=== PATIENT | male | born 1955 | race Caucasian/White ===

== ENCOUNTER 2022-11-18 06:06 | Outpatient (REF) | payer MEDICARE, MEDICAID, SELFPAY ==
[2022-11-18 05:55] LABS: MANUAL DIFF FLAG NO
[2022-11-18 06:12] LABS: Basophils Percent Auto 0.4 % (0-2); Eosinophils Absolute Auto 0.4 X10*3/uL (0.0-0.4); Eosinophils Percent Auto 4.5 % (0-4); Hematocrit 31.4 % (42.0-52.0); Hemoglobin 10.4 g/dl (14.0-18.0); Imm Gran Abs Auto 0.04 X10*3/uL (0.00-0.03); Imm Gran Pct Auto 0.4 % (0.0-0.4); Lymphocytes Absolute Auto 2.1 X10*3/uL (1.2-4.9); Lymphocytes Percent Auto 23.9 % (20-40); Mean Corpuscular HGB Conc 33.1 g/dl (31.0-36.0); Mean Corpuscular Hemoglobin 30.1 pg (27.0-33.0); Mean Corpuscular Volume 90.8 fL (80.0-98.0); Mean Platelet Volume 10.3 fL (9.4-12.4); Monocytes Absolute Auto 0.7 X10*3/uL (0.1-1.2); Monocytes Percent Auto 7.5 % (2-11); Neutrophils Absolute Auto 5.7 x10*3/uL (2.0-8.3); Neutrophils Percent Auto 63.3 % (45-73); Platelet Count 292 X10*3/uL (160-400); Red Blood Count 3.46 X10*6/uL (4.60-5.80); Red Cell Distribution Width 15.2 % (11.0-16.0); White Blood Count 8.9 X10*3/uL (4.8-10.8)
[2022-11-18 06:30] LABS: Anion Gap 16 (12-20); Blood Urea Nitrogen 11 mg/dL (9-16); Carbon Dioxide 27 mmol/L (22-29); Chloride 100 mmol/L (96-108); Estimated Glomerular Filt Rate > 60; Glucose Random 111 mg/dL (60-115); Potassium 5.1 mmol/L (3.3-5.1); Sodium 138 mmol/L (135-145)
== END 2022-11-18 06:07 | disposition home or self-care (01) ==
LOC: HO.MMNH1L 06:06
PROVIDERS: Visit Provider Family Medicine
DX: E11.9 Type 2 diabetes mellitus without complications (principal); E46 Unspecified protein-calorie malnutrition; I10 Essential (primary) hypertension
CPT/HCPCS: 36415; 80048; 85025

== ENCOUNTER 2022-11-25 06:08 | Outpatient (REF) | payer MEDICARE, MEDICAID, SELFPAY ==
[2022-11-25 05:59] LABS: MANUAL DIFF FLAG NO
[2022-11-25 06:53] LABS: Basophils Percent Auto 0.6 % (0-2); Eosinophils Absolute Auto 0.2 X10*3/uL (0.0-0.4); Eosinophils Percent Auto 2.9 % (0-4); Hemoglobin 9.3 g/dl (14.0-18.0); Imm Gran Abs Auto 0.02 X10*3/uL (0.00-0.03); Imm Gran Pct Auto 0.3 % (0.0-0.4); Lymphocytes Absolute Auto 1.9 X10*3/uL (1.2-4.9); Lymphocytes Percent Auto 28.8 % (20-40); Mean Corpuscular HGB Conc 32.1 g/dl (31.0-36.0); Mean Corpuscular Hemoglobin 29.5 pg (27.0-33.0); Mean Corpuscular Volume 92.1 fL (80.0-98.0); Mean Platelet Volume 10.4 fL (9.4-12.4); Monocytes Absolute Auto 0.6 X10*3/uL (0.1-1.2); Monocytes Percent Auto 9.1 % (2-11); Neutrophils Absolute Auto 3.9 x10*3/uL (2.0-8.3); Neutrophils Percent Auto 58.3 % (45-73); Platelet Count 295 X10*3/uL (160-400); Red Blood Count 3.15 X10*6/uL (4.60-5.80); Red Cell Distribution Width 15.6 % (11.0-16.0); White Blood Count 6.6 X10*3/uL (4.8-10.8)
[2022-11-25 07:27] LABS: Anion Gap 14 (12-20); Blood Urea Nitrogen 15 mg/dL (9-16); Calcium 9.5 mg/dL (8.4-10.2); Carbon Dioxide 28 mmol/L (22-29); Chloride 99 mmol/L (96-108); Estimated Glomerular Filt Rate > 60; Glucose Random 100 mg/dL (60-115); Potassium 4.9 mmol/L (3.3-5.1); Sodium 136 mmol/L (135-145)
== END 2022-11-25 06:09 | disposition home or self-care (01) ==
LOC: HO.MMNH1L 06:08
PROVIDERS: Visit Provider Family Medicine
DX: E11.9 Type 2 diabetes mellitus without complications (principal); E46 Unspecified protein-calorie malnutrition; I10 Essential (primary) hypertension
CPT/HCPCS: 36415; 80048; 85025

== ENCOUNTER 2022-12-02 05:51 | Outpatient (REF) | payer MEDICARE, MEDICAID, SELFPAY ==
[2022-12-02 05:43] LABS: MANUAL DIFF FLAG NO
[2022-12-02 06:18] LABS: Basophils Percent Auto 0.5 % (0-2); Eosinophils Absolute Auto 0.2 X10*3/uL (0.0-0.4); Eosinophils Percent Auto 2.7 % (0-4); Hematocrit 27.7 % (42.0-52.0); Imm Gran Abs Auto 0.05 X10*3/uL (0.00-0.03); Imm Gran Pct Auto 0.9 % (0.0-0.4); Lymphocytes Absolute Auto 1.9 X10*3/uL (1.2-4.9); Lymphocytes Percent Auto 32.6 % (20-40); Mean Corpuscular HGB Conc 32.5 g/dl (31.0-36.0); Mean Corpuscular Volume 92.3 fL (80.0-98.0); Mean Platelet Volume 10.4 fL (9.4-12.4); Monocytes Absolute Auto 0.6 X10*3/uL (0.1-1.2); Monocytes Percent Auto 10.9 % (2-11); Neutrophils Absolute Auto 3.1 x10*3/uL (2.0-8.3); Neutrophils Percent Auto 52.4 % (45-73); Platelet Count 271 X10*3/uL (160-400); Red Cell Distribution Width 16.1 % (11.0-16.0); White Blood Count 5.9 X10*3/uL (4.8-10.8)
[2022-12-02 06:35] LABS: Anion Gap 12 (12-20); Blood Urea Nitrogen 10 mg/dL (9-16); Calcium 9.6 mg/dL (8.4-10.2); Carbon Dioxide 30 mmol/L (22-29); Chloride 101 mmol/L (96-108); Estimated Glomerular Filt Rate > 60; Glucose Random 109 mg/dL (60-115); Potassium 5.3 mmol/L (3.3-5.1); Sodium 138 mmol/L (135-145)
== END 2022-12-02 05:52 | disposition home or self-care (01) ==
LOC: HO.MMNH1L 05:51
PROVIDERS: Visit Provider Family Medicine
DX: E11.9 Type 2 diabetes mellitus without complications (principal); E46 Unspecified protein-calorie malnutrition; I10 Essential (primary) hypertension
CPT/HCPCS: 36415; 80048; 85025

== ENCOUNTER 2022-12-09 06:05 | Outpatient (REF) | payer MEDICARE, MEDICAID, SELFPAY ==
[2022-12-09 06:02] LABS: MANUAL DIFF FLAG NO
[2022-12-09 07:01] LABS: Anion Gap 13 (12-20); Blood Urea Nitrogen 15 mg/dL (9-16); Calcium 9.8 mg/dL (8.4-10.2); Carbon Dioxide 28 mmol/L (22-29); Chloride 101 mmol/L (96-108); Estimated Glomerular Filt Rate > 60; Glucose Random 104 mg/dL (60-115); Sodium 137 mmol/L (135-145)
[2022-12-09 07:05] LABS: Basophils Percent Auto 0.3 % (0-2); Eosinophils Absolute Auto 0.2 X10*3/uL (0.0-0.4); Eosinophils Percent Auto 1.3 % (0-4); Hematocrit 27.8 % (42.0-52.0); Imm Gran Abs Auto 0.07 X10*3/uL (0.00-0.03); Imm Gran Pct Auto 0.5 % (0.0-0.4); Lymphocytes Absolute Auto 1.6 X10*3/uL (1.2-4.9); Lymphocytes Percent Auto 12.5 % (20-40); Mean Corpuscular HGB Conc 32.4 g/dl (31.0-36.0); Mean Corpuscular Hemoglobin 29.6 pg (27.0-33.0); Mean Corpuscular Volume 91.4 fL (80.0-98.0); Mean Platelet Volume 10.6 fL (9.4-12.4); Monocytes Absolute Auto 1.2 X10*3/uL (0.1-1.2); Monocytes Percent Auto 9.5 % (2-11); Neutrophils Absolute Auto 9.8 x10*3/uL (2.0-8.3); Neutrophils Percent Auto 75.9 % (45-73); Platelet Count 250 X10*3/uL (160-400); Red Blood Count 3.04 X10*6/uL (4.60-5.80); Red Cell Distribution Width 16.7 % (11.0-16.0); White Blood Count 12.9 X10*3/uL (4.8-10.8)
== END 2022-12-09 06:06 | disposition home or self-care (01) ==
LOC: HO.MMNH1L 06:05
PROVIDERS: Visit Provider Family Medicine
DX: E11.9 Type 2 diabetes mellitus without complications (principal); E46 Unspecified protein-calorie malnutrition; I10 Essential (primary) hypertension
CPT/HCPCS: 36415; 80048; 85025

== ENCOUNTER 2022-12-16 05:46 | Outpatient (REF) | payer MEDICARE, MEDICAID, SELFPAY ==
[2022-12-16 05:43] LABS: MANUAL DIFF FLAG NO
[2022-12-16 06:27] LABS: Basophils Percent Auto 0.4 % (0-2); Eosinophils Absolute Auto 0.1 X10*3/uL (0.0-0.4); Eosinophils Percent Auto 1.5 % (0-4); Hematocrit 27.7 % (42.0-52.0); Hemoglobin 8.9 g/dl (14.0-18.0); Imm Gran Abs Auto 0.09 X10*3/uL (0.00-0.03); Imm Gran Pct Auto 1.1 % (0.0-0.4); Lymphocytes Absolute Auto 2.5 X10*3/uL (1.2-4.9); Lymphocytes Percent Auto 30.2 % (20-40); Mean Corpuscular HGB Conc 32.1 g/dl (31.0-36.0); Mean Corpuscular Hemoglobin 29.7 pg (27.0-33.0); Mean Corpuscular Volume 92.3 fL (80.0-98.0); Mean Platelet Volume 10.1 fL (9.4-12.4); Monocytes Absolute Auto 0.8 X10*3/uL (0.1-1.2); Monocytes Percent Auto 9.5 % (2-11); Neutrophils Absolute Auto 4.7 x10*3/uL (2.0-8.3); Neutrophils Percent Auto 57.3 % (45-73); Platelet Count 304 X10*3/uL (160-400); Red Cell Distribution Width 16.4 % (11.0-16.0); White Blood Count 8.3 X10*3/uL (4.8-10.8)
[2022-12-16 06:45] LABS: Anion Gap 13 (12-20); Blood Urea Nitrogen 24 mg/dL (9-16); Calcium 9.7 mg/dL (8.4-10.2); Carbon Dioxide 26 mmol/L (22-29); Chloride 102 mmol/L (96-108); Estimated Glomerular Filt Rate > 60; Glucose Random 96 mg/dL (60-115); Potassium 5.2 mmol/L (3.3-5.1); Sodium 136 mmol/L (135-145)
== END 2022-12-16 05:47 | disposition home or self-care (01) ==
LOC: HO.MMNH1L 05:46
PROVIDERS: Visit Provider Family Medicine
DX: E11.9 Type 2 diabetes mellitus without complications (principal); E46 Unspecified protein-calorie malnutrition; I10 Essential (primary) hypertension
CPT/HCPCS: 36415; 80048; 85025

== ENCOUNTER 2022-12-23 06:24 | Outpatient (REF) | payer MEDICARE, MEDICAID, SELFPAY ==
[2022-12-23 06:10] LABS: MANUAL DIFF FLAG NO
[2022-12-23 06:21] LABS: Basophils Percent Auto 0.6 % (0-2); Eosinophils Absolute Auto 0.1 X10*3/uL (0.0-0.4); Eosinophils Percent Auto 1.9 % (0-4); Hematocrit 30.6 % (42.0-52.0); Hemoglobin 9.9 g/dl (14.0-18.0); Imm Gran Abs Auto 0.03 X10*3/uL (0.00-0.03); Imm Gran Pct Auto 0.4 % (0.0-0.4); Lymphocytes Absolute Auto 2.2 X10*3/uL (1.2-4.9); Lymphocytes Percent Auto 31.9 % (20-40); Mean Corpuscular HGB Conc 32.4 g/dl (31.0-36.0); Mean Corpuscular Hemoglobin 29.6 pg (27.0-33.0); Mean Corpuscular Volume 91.3 fL (80.0-98.0); Mean Platelet Volume 10.3 fL (9.4-12.4); Monocytes Absolute Auto 0.6 X10*3/uL (0.1-1.2); Neutrophils Percent Auto 56.2 % (45-73); Platelet Count 308 X10*3/uL (160-400); Red Blood Count 3.35 X10*6/uL (4.60-5.80); Red Cell Distribution Width 15.9 % (11.0-16.0)
[2022-12-23 07:14] LABS: Anion Gap 15 (12-20); Blood Urea Nitrogen 22 mg/dL (9-16); Calcium 9.8 mg/dL (8.4-10.2); Carbon Dioxide 25 mmol/L (22-29); Chloride 104 mmol/L (96-108); Estimated Glomerular Filt Rate > 60; Glucose Random 78 mg/dL (60-115); Potassium 4.8 mmol/L (3.3-5.1); Sodium 139 mmol/L (135-145)
== END 2022-12-23 06:25 | disposition home or self-care (01) ==
LOC: HO.MMNH1L 06:24
PROVIDERS: Visit Provider Family Medicine
DX: E11.9 Type 2 diabetes mellitus without complications (principal); E46 Unspecified protein-calorie malnutrition; I10 Essential (primary) hypertension
CPT/HCPCS: 36415; 80048; 85025

== ENCOUNTER 2022-12-30 05:51 | Outpatient (REF) | payer MEDICARE, MEDICAID, SELFPAY ==
[2022-12-30 05:40] LABS: MANUAL DIFF FLAG NO
[2022-12-30 06:52] LABS: Basophils Percent Auto 0.4 % (0-2); Eosinophils Absolute Auto 0.1 X10*3/uL (0.0-0.4); Eosinophils Percent Auto 1.8 % (0-4); Hematocrit 28.1 % (42.0-52.0); Hemoglobin 9.1 g/dl (14.0-18.0); Imm Gran Abs Auto 0.03 X10*3/uL (0.00-0.03); Imm Gran Pct Auto 0.4 % (0.0-0.4); Lymphocytes Absolute Auto 2.1 X10*3/uL (1.2-4.9); Lymphocytes Percent Auto 31.4 % (20-40); Mean Corpuscular HGB Conc 32.4 g/dl (31.0-36.0); Mean Corpuscular Hemoglobin 29.8 pg (27.0-33.0); Mean Corpuscular Volume 92.1 fL (80.0-98.0); Mean Platelet Volume 10.8 fL (9.4-12.4); Monocytes Absolute Auto 0.6 X10*3/uL (0.1-1.2); Monocytes Percent Auto 9.2 % (2-11); Neutrophils Absolute Auto 3.8 x10*3/uL (2.0-8.3); Neutrophils Percent Auto 56.8 % (45-73); Platelet Count 283 X10*3/uL (160-400); Red Blood Count 3.05 X10*6/uL (4.60-5.80); Red Cell Distribution Width 16.2 % (11.0-16.0); White Blood Count 6.7 X10*3/uL (4.8-10.8)
[2022-12-30 07:11] LABS: Anion Gap 14 (12-20); Blood Urea Nitrogen 15 mg/dL (9-16); Calcium 9.8 mg/dL (8.4-10.2); Carbon Dioxide 28 mmol/L (22-29); Chloride 102 mmol/L (96-108); Estimated Glomerular Filt Rate > 60; Glucose Random 84 mg/dL (60-115); Potassium 5.2 mmol/L (3.3-5.1); Sodium 139 mmol/L (135-145)
== END 2022-12-30 05:52 | disposition home or self-care (01) ==
LOC: HO.MMNH1L 05:51
PROVIDERS: Visit Provider Family Medicine
DX: E11.9 Type 2 diabetes mellitus without complications (principal); E46 Unspecified protein-calorie malnutrition; I10 Essential (primary) hypertension
CPT/HCPCS: 36415; 80048; 85025

== ENCOUNTER 2023-01-05 19:38 | Inpatient (IN) | payer MEDICARE, MEDICAID, SELFPAY ==
--- NOTE | ~2023-01-05 | CT_ITS ---
EXAMINATION: CT HEAD WITHOUT CONTRAST (STROKE PROTOCOL) CLINICAL INFORMATION: Stroke protocol. Stroke COMPARISON: None available. TECHNIQUE: Contiguous axial imaging was performed from the skull base to vertex without intravenous administration of contrast. This CT examination was performed using dose optimization techniques as appropriate, variously including the following: *Automated exposure control *Adjustment of mA and/or kV according to patient size (this includes techniques or standardized protocols for targeted exams where dose is matched to indication/reason for exam; i.e. extremities or head) *Use of iterative reconstruction technique DLP: 977 mGy-cm FINDINGS: There is atrophy seen more marked in the left frontal lobe probably secondary to remote infarct. Ventricles are prominent secondary to volume loss, especially on the left with some ex vacuo dilatation. No evidence of intracranial hemorrhage or subdural collections. CT/CT head for stroke IMPRESSION: No acute intracranial pathology.
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
--- NOTE | 2023-01-05 19:45 | ECG_ITS ---
Test Reason : STROKE Blood Pressure : / mmHG Vent. Rate : 099 BPM Atrial Rate : 099 BPM P-R Int : 112 ms QRS Dur : 066 ms QT Int : 350 ms P-R-T Axes : 072 -60 099 degrees QTc Int : 449 ms Normal sinus rhythm Left axis deviation Nonspecific T wave abnormality Abnormal ECG No previous ECGs available Referred By: Enma Tinsley Electronically Signed By:WENDI SALDANA MD
--- NOTE | 2023-01-05 19:47 | ED_ITS ---
HPI - General Adult General Chief complaint: Stroke Stated complaint: ? Stroke Time Seen by Provider: 01/05/23 19:45 Source: EMS and RN notes reviewed Mode of arrival: EMS Limitations: physical limitation (Dementia) History of Present Illness HPI narrative: 67-year-old male came in from [facility] for decreased mental status, patient with known history of dementia therefore patient is poor historian unable to give meaningful history. Last time patient was seen normal at the halfway was 6 hours before arrival to the hospital, patient was previous CVA and right-sided chronic weakness. Past medical history is significant for anemia, cerebral infarction, right hip fracture, GERD, H dL, anxiety, DM type 2, dementia, contracture of muscle right upper arm, essential HTN, CVA with right hemiparesis. Unspecified convulsions. Initially patient was hypoxic in the emergency department was placed on 4 L of oxygen that improved his symptoms. Related Data Allergies Allergy/AdvReac Type Severity Reaction Status Date / Time No Known Allergies Allergy Verified 01/05/23 19:45 Review of Systems Review of Systems: Yes Unobtainable due to mental status PMFSH Past Medical History Medical History Cerebrovascular accident Essential hypertension Mixed hyperlipidemia Mood disorder Non-insulin dependent type 2 diabetes mellitus Seizure disorder Social History Social History Advance Directives: No Advance Directives Information Provided: No Physical Exam ED Vital Signs: Vital Signs - 24 hr 01/05/23 19:51 01/05/23 20:00 Temperature 98.9 F 98.7 F Pulse Rate 99 94 Respiratory Rate 18 12 Blood Pressure 135/71 135/71 Pulse Oximetry 100 Oxygen Delivery Method Nasal Cannula Nasal Cannula Oxygen Flow Rate 4 BMI result Body Mass Index 16.1 Vital signs have been reviewed as appeared to be correct. Blood pressure normal. Heart rate normal. Respiration rate normal. Temperature normal. Oxygen saturation normal. Appearance: Alert. Oriented to self only. No acute distress. Head: Normal external exam. Normocephalic. Atraumatic. No Barclay signs noted. No raccoon eyes noted Eyes: PERRLA. EOMI. Conjunctiva and sclera normal. Eyelids normal. ENT: TM's Normal. Pharynx normal. Uvula midline. Moist mucous membranes. No trismus noted. No drooling noted. No muffled voice noted. Neck: Normal inspection. Neck supple. FROM. No adenopathy. Thyroid Normal. No meningeal signs. No neck mass noted. CVS: Normal heart rate and rhythm. Heart sound normal. No murmurs noted. Pulses normal throughout. Respiratory: No respiratory distress. Painless inspiration. Breath sounds normal, left lower lung field with crackles. Chest nontender. No accessory muscle usage noted or decreased air movement noted. Abdomen: Soft and nontender. Bowel sounds normal in all 4 quadrants. No distention noted. No organomegaly noted. No visible injury noted. Back: No CVA tenderness. Full range of motion noted. Skin: Skin warm and dry. Normal skin color. Normal skin turgor. No rashes/lesions/lacerations noted. Extremities: No lower extremity edema. Extremities exhibit normal range of motion. Extremities nontender. Neuro: Oriented to self. Cranial nerve exam: II-XII are grossly intact No motor deficit. No sensory deficit. Reflexes normal. Course Course Course Narrative: A 67-year-old male came in from halfway for possible stroke, patient baseline is bed/wheelchair bound due to old CVA with right hemiparesis and right-sided contracture, last was seen well at the nursing was 6 hours before arrival to the hospital, very difficult neuro exam to determine new deficit verses old deficit from the old CVA in addition to unknown onset of symptoms, and limited patient's function, also physical exam and chest x-ray finding is more consistent with aspiration pneumonia and patient meet criteria for SIRS, therefore patient is not a candidate for tPA. Reevaluation(s) Reevaluation #1: Chest x-ray as consistent with left lower lobe possible aspiration pneumonia, patient meet criteria for SIRS will send for blood culture and lactic acid, and Zosyn IV. Time: 21:43 Reevaluation #2: Lactic acid is 5.3 patient now meet criteria for septic shock, Zosyn given IV, total of 1620 mL of fluid bolus was given at 23:00. Time: 23:00 Medications Administered Discontinued Medications Generic Name Dose Route Start Last Admin Trade Name Freq PRN Reason Stop Dose Admin Piperacillin Sod/Tazobactam 50 mls @ 100 mls/hr 01/05/23 21:38 01/05/23 22:38 Sod 3.375 gm/ Sodium Chloride IV 01/05/23 22:07 100 mls/hr ONCE ONE Administration Sodium Chloride 1,000 mls @ 999 mls/hr 01/05/23 21:43 01/05/23 22:39 Ns IV 01/05/23 22:43 999 mls/hr .Q1H1M ONE Administration Medical Decision Making Differential Diagnosis Differential Diagnoses: The differential diagnosis associated with the presentation includes (CVA, TIA, electrolyte abnormalities, severe anemia, aspiration pneumonia.) Admission/Observation Consideration of admission/observation: Escalation of care including admission/observation considered Consult Healthcare Provider Management of the patient was discussed with: Hospitalist (Edward) Lab Data MDM Lab Attestation statement: I reviewed the patient's lab results. 01/05/23 20:01 01/05/23 20:01 Labs: Lab Results 01/05/23 01/05/23 01/05/23 Range/Units 19:43 20:01 20:01 WBC 16.9 H (4.8-10.8) X10*3/uL RBC 3.31 L (4.60-5.80) X10*6/uL Hgb 9.9 L (14.0-18.0) g/dl Hct 30.5 L (42.0-52.0) % MCV 92.1 (80.0-98.0) fL MCH 29.9 (27.0-33.0) pg MCHC 32.5 (31.0-36.0) g/dl RDW 16.1 H (11.0-16.0) % Plt Count 244 (160-400) X10*3/uL MPV 9.6 (9.4-12.4) fL Immature Gran % (Auto) 0.8 H (0.0-0.4) % Neut % (Auto) 88.6 H (45-73) % Lymph % (Auto) 4.7 L (20-40) % [place] % (Auto) 5.7 (2-11) % Eos % (Auto) 0.0 (0-4) % Baso % (Auto) 0.2 (0-2) % Lymph # (Auto) 0.8 L (1.2-4.9) X10*3/uL [place] # (Auto) 1.0 (0.1-1.2) X10*3/uL Eos # (Auto) 0.0 (0.0-0.4) X10*3/uL Baso # (Auto) 0.0 (0.0-0.2) X10*3/uL Abs Immat Gran (auto) 0.14 H (0.00-0.03) X10*3/uL Absolute Neuts (auto) 15.0 H (2.0-8.3) x10*3/uL Absolute Nucleated RBC 0.000 (0.0-0.012) X10*3/uL Nucleated RBC % (auto) 0.0 (0.0-0.2) /100WBC PT 12.3 (10.0-13.1) SEC Whole Blood PT 12.7 (11.1-13.5) sec INR 1.1 (0.9-1.1) Whole Blood INR 1.1 (0.9-1.1) APTT 25.5 L (26.0-36.4) SEC Sodium (135-145) mmol/L Potassium (3.3-5.1) mmol/L Chloride (96-108) mmol/L Carbon Dioxide (22-29) mmol/L Anion Gap (12-20) BUN (9-16) mg/dL Creatinine (0.5-1.4) mg/dL Estim Creat Clear Calc Estimated GFR Random Glucose (60-115) mg/dL Calcium (8.4-10.2) mg/dL Total Creatine Kinase (38-174) U/L Troponin I High Sens (<3.5-35.0) ng/L 01/05/23 01/05/23 Range/Units 20:01 20:01 WBC (4.8-10.8) X10*3/uL RBC (4.60-5.80) X10*6/uL Hgb (14.0-18.0) g/dl Hct (42.0-52.0) % MCV (80.0-98.0) fL MCH (27.0-33.0) pg MCHC (31.0-36.0) g/dl RDW (11.0-16.0) % Plt Count (160-400) X10*3/uL MPV (9.4-12.4) fL Immature Gran % (Auto) (0.0-0.4) % Neut % (Auto) (45-73) % Lymph % (Auto) (20-40) % [place] % (Auto) (2-11) % Eos % (Auto) (0-4) % Baso % (Auto) (0-2) % Lymph # (Auto) (1.2-4.9) X10*3/uL [place] # (Auto) (0.1-1.2) X10*3/uL Eos # (Auto) (0.0-0.4) X10*3/uL Baso # (Auto) (0.0-0.2) X10*3/uL Abs Immat Gran (auto) (0.00-0.03) X10*3/uL Absolute Neuts (auto) (2.0-8.3) x10*3/uL Absolute Nucleated RBC (0.0-0.012) X10*3/uL Nucleated RBC % (auto) (0.0-0.2) /100WBC PT (10.0-13.1) SEC Whole Blood PT (11.1-13.5) sec INR (0.9-1.1) Whole Blood INR (0.9-1.1) APTT (26.0-36.4) SEC Sodium 135 (135-145) mmol/L Potassium 5.2 H (3.3-5.1) mmol/L Chloride 99 (96-108) mmol/L Carbon Dioxide 23 (22-29) mmol/L Anion Gap 18 (12-20) BUN 20 H (9-16) mg/dL Creatinine 1.24 (0.5-1.4) mg/dL Estim Creat Clear Calc 43.5 Estimated GFR 58 Random Glucose 240 H (60-115) mg/dL Calcium 10.1 (8.4-10.2) mg/dL Total Creatine Kinase 55 (38-174) U/L Troponin I High Sens 2.9 (<3.5-35.0) ng/L Independent Interpretation I performed an independent interpretation of an: Plain X-Ray (Left lower lobe opacification: Possible pneumonia.) and CT Scan (No acute intracranial pathology.) Radiology Impression Discussion of test interpretation with radiology: I have reviewed the radiologist's reading. Discharge Plan Discharge Clinical Impression: Cerebrovascular accident, Aspiration pneumonia Patient Disposition: Admitted As Inpatient
[2023-01-05 19:48] LABS: Prothrombin Time Whole Bld POC 12.7 sec (11.1-13.5); ~PT, ~INR - Anti Coag Clinic 1.1 (0.9-1.1)
[2023-01-05 19:51] VITALS: BP 135/71; BP 142/72; PULSE 100; PULSE 99; RESP 18; TEMP 37.2; O2SAT 90; BMI 16.1
[2023-01-05 20:00] VITALS: BP 135/71; PULSE 94; RESP 12; TEMP 37.1; O2SAT 100
--- NOTE | 2023-01-05 20:06 | PC.NURSE ---
Patient arrived via EMS from [facility] with reports of being in and out of consciousness and right sided facial drop worsening from previous CVA. Last well known time 4-6 hours ago. When PT arrived MD assessed, spd tech performed POC 164, and coagucheck PT 12.7 and INR 1.1. Patient was taken to CT scan, IV line inserted in left AC, labs drawn and sent to lab for processing. EKG completed. Patient on continuous cardiac monitoring and 4L of oxygen at this time.
[2023-01-05 20:08] LABS: MANUAL DIFF FLAG NO
[2023-01-05 20:09] LABS: Basophils Percent Auto 0.2 % (0-2); Hematocrit 30.5 % (42.0-52.0); Hemoglobin 9.9 g/dl (14.0-18.0); Imm Gran Abs Auto 0.14 X10*3/uL (0.00-0.03); Imm Gran Pct Auto 0.8 % (0.0-0.4); Lymphocytes Absolute Auto 0.8 X10*3/uL (1.2-4.9); Lymphocytes Percent Auto 4.7 % (20-40); Mean Corpuscular HGB Conc 32.5 g/dl (31.0-36.0); Mean Corpuscular Hemoglobin 29.9 pg (27.0-33.0); Mean Corpuscular Volume 92.1 fL (80.0-98.0); Mean Platelet Volume 9.6 fL (9.4-12.4); Monocytes Percent Auto 5.7 % (2-11); Neutrophils Percent Auto 88.6 % (45-73); Platelet Count 244 X10*3/uL (160-400); Red Blood Count 3.31 X10*6/uL (4.60-5.80); Red Cell Distribution Width 16.1 % (11.0-16.0); White Blood Count 16.9 X10*3/uL (4.8-10.8)
--- NOTE | 2023-01-05 20:14 | PC.NURSE ---
This RN spoke with Essence at [facility]. She reports at baseline he uses a wheelchair for mobility and eats on his own he just requires assistance to his chair and he is normally in bed for most of the day. Has contractures baseline in his right hand and some joint stiffness in left arm. He is conversational at baseline. She reports he was not doing well this week as he suddenly changed. He reportedly has been refusing snacks, refusing to take meds and less conversational. He was found bent over vomiting and not responsive prior to EMS being called.
[2023-01-05 20:15] LABS: INTERNATIONAL NORM RATIO 1.1 (0.9-1.1); Prothrombin Time 12.3 SEC (10.0-13.1)
[2023-01-05 20:18] LABS: Partial Thromboplastin Time 25.5 SEC (26.0-36.4)
[2023-01-05 20:19] LABS: Stroke Lab Use COMPLETE
[2023-01-05 20:26] LABS: Anion Gap 18 (12-20); Blood Urea Nitrogen 20 mg/dL (9-16); Calcium 10.1 mg/dL (8.4-10.2); Carbon Dioxide 23 mmol/L (22-29); Chloride 99 mmol/L (96-108); Creatinine Clr Calc Pharmacy 43.5; Estimated Glomerular Filt Rate 58; Glucose Random 240 mg/dL (60-115); Potassium 5.2 mmol/L (3.3-5.1); Sodium 135 mmol/L (135-145)
[2023-01-05 20:28] LABS: Troponin-I High Sensitivity 2.9 ng/L (<3.5-35.0)
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
[2023-01-05 22:23] LABS: Lactic Acid 5.3 mmol/L (0.5-2.0)
[2023-01-05] MEDS: Piperacillin Sodium/Tazobactam 3.375 GM in 0.9 % Sodium Chloride 50 ML IV (22:38)
[2023-01-05] MEDS: 0.9 % Sodium Chloride 1,000 ML 999 ML IV (22:39)
[2023-01-05] MEDS: Enoxaparin Sodium 40 MG/0.4 ML SYRINGE SUBCUT (23:29)
[2023-01-06] VITALS (7 sets, daily range): BP systolic 96–137; BP diastolic 54–80; PULSE 56–100; RESP 15–20; TEMP 36.1–37.3; O2SAT 92–100; BMI 16.6
[2023-01-06 00:03] LABS: Reflex Lactate? Lactic Acid Added
[2023-01-06] MEDS: 0.9 % Sodium Chloride Flush 3 ML SYRINGE IVFLUSH ×3 (00:11→12:11)
[2023-01-06] MEDS: Ampicillin Sodium/Sulbactam Na 3 GM in 0.9 % Sodium Chloride 100 ML IV ×5 (00:12→23:57)
[2023-01-06] MEDS: levETIRAcetam in NaCl (iso-os) 1,000 MG/100 ML PIGGYBACK 400 MG IV ×3 (01:03→22:24)
[2023-01-06 03:51] LABS: Glucose, Whole Blood 108 mg/dL (60-115)
[2023-01-06 07:33] LABS: ~Lactic Acid-LAB USE ONLY 1.1 mmol/L (0.5-2.0)
[2023-01-06 08:34] LABS: Glucose, Whole Blood 133 mg/dL (60-115)
--- NOTE | 2023-01-06 09:12 | PHA.MEDREC ---
Med rec complete, used [facility]ci MAR from [facility] Consult ? Medication Reconciliation Pharmacy has completed the medication reconciliation.
--- NOTE | 2023-01-06 11:36 | MHC.CM.PN ---
IMM 01/06/23 DELIVERED TO SISTER/HCP DELONTE SIDHU [phone] AND WILL BE LEFT AT BEDSIDE PER DISCUSSION, DELONTE REPORTS PT WENT IN TO [facility] AFTER HIP FX IN AND DOES NOT FEEL HE RECEIVED THE REHAB HE NEEDED, DELONTE REPORTS PT IS FULLY DEPENDENT AND CANNOT WALK/STAND ON PREVIOUSLY FX'D HIP. DELONTE WOULD LIKE REFERRALS PLACED TO OTHER SNF'S AND HAS NO PREFERENCE OTHER THAN BEING CLOSER TO HER IN [place]. DELONTE AWARE THAT IT IS NOT LIKELY WE WILL FIND NEW LTC PLACEMENT FOR PT. DELONTE REPORTS THE ORIGINAL PLAN WAS FOR PT TO RETURN HOME HOWEVER DELONTE HAD BEEN HAVING A LOT OF DIFFICULTY FINDING ENOUGH STAFF TO PROVIDE 24HR CARE FOR PT. PT REMAINS AT [facility] AND IS BED HOLD, PCP IS MYCHAL VIEIRA. PER [facility] PAPERWORK HCP INVOKED AND HCP IS SISTER DELONTE SIDHU AND COPY HAS BEEN REQUESTED FROM SNF, DELONTE ALSO REPORTS SHE HAS A COPY SHE CAN BRING IN IF NEEDED. ANTIC PT WILL RETURN TO [facility] VIA BLS ONCE MEDICALLY CLEARED.
[2023-01-06 11:45] LABS: Glucose, Whole Blood 109 mg/dL (60-115)
--- NOTE | 2023-01-06 12:27 | HO.PM.IMPN ---
Subjective Subjective Date of Service: 01/06/23 Physical Exam Vital Signs: Vital Signs: Last Vital Signs Temp 97.9 F 01/06/23 07:54 Pulse 69 01/06/23 07:54 Resp 18 01/06/23 07:54 BP 119/54 L 01/06/23 07:54 Pulse Ox 96 01/06/23 07:54 O2 Del Method Nasal Cannula 01/06/23 07:54 O2 Flow Rate 1 01/06/23 07:54 Oxygen Flow Rate 4 01/05/23 19:51 BMI result Body Mass Index 16.6 Objective Data Active Medications Acetaminophen (Acetaminophen 325 Mg Tablet) 650 mg PO Q6H PRN PRN Reason: Pain, Mild (Pain Scale 1-3) Acetaminophen (Acetaminophen Supp 650 Mg Supp.Rect) 650 mg [place] Q6H PRN PRN Reason: Pain, Mild (Pain Scale 1-3) Enoxaparin Sodium (Enoxaparin Sodium 40 Mg/0.4 Ml Syringe) 40 mg SUBCUT Q24H [facility] Last Admin: 01/05/23 23:29 Dose: 40 mg Documented By: CASSIE Glucose (Glucose Gel 15 Gm Gel..Gram.) 15 gm PO Q15M PRN; Protocol PRN Reason: per Hypoglycemia Standing Ord. Dextrose (D10) 250 mls @ 750 mls/hr IV Q15M PRN; Protocol PRN Reason: per Hypoglycemia Standing Ord. Levetiracetam (Keppra) 1,000 mg in 100 mls @ 400 mls/hr IV Q12H [facility] Last Infusion: 01/06/23 10:07 Dose: 0 mls/hr Documented By: JESUS Ampicillin Sodium/Sulbactam (Sodium 3 gm/ Sodium Chloride) 100 mls @ 200 mls/hr IV Q6H [facility] Last Admin: 01/06/23 12:09 Dose: 200 mls/hr Documented By: JESUS Insulin Human Lispro (Insulin Lispro 100 Unit/Ml 3 Ml Vial) 0 unit SUBCUT Q6H [facility]; Protocol Last Admin: 01/06/23 08:34 Dose: Not Given Documented By: JESUS Non-Admin Reason: No Insulin Coverage Melatonin (Melatonin 3 Mg Tablet) 6 mg PO BEDTIME PRN PRN Reason: Insomnia Ondansetron HCl (Ondansetron Hcl 4 Mg/2 Ml Vial) 4 mg IVPUSH Q8H PRN PRN Reason: Nausea and Vomiting Pharmacy Consult (Consult Rx Perform Med Rec) 1 each MISCELLANE ONCE PRN PRN Reason: Consult order Sodium Chloride (0.9 % Sodium Chloride Flush 3 Ml Syringe) 3 ml IVFLUSH QSHIFT [facility] Last Admin: 01/06/23 12:11 Dose: 3 ml Documented By: JESUS Labs 01/05/23 20:01 01/05/23 20:01 Labs: Laboratory Results - last 24 hr 01/05/23 01/05/23 01/05/23 19:43 20:01 20:01 MCV 92.1 MCH 29.9 MCHC 32.5 RDW 16.1 H Plt Count 244 MPV 9.6 Immature Gran % (Auto) 0.8 H Neut % (Auto) 88.6 H Lymph % (Auto) 4.7 L [place] % (Auto) 5.7 Eos % (Auto) 0.0 Baso % (Auto) 0.2 Lymph # (Auto) 0.8 L [place] # (Auto) 1.0 Eos # (Auto) 0.0 Baso # (Auto) 0.0 Abs Immat Gran (auto) 0.14 H Absolute Neuts (auto) 15.0 H Absolute Nucleated RBC 0.000 Nucleated RBC % (auto) 0.0 PT 12.3 Whole Blood PT 12.7 INR 1.1 Whole Blood INR 1.1 APTT 25.5 L Anion Gap Estim Creat Clear Calc Estimated GFR POC Glucose Random Glucose Lactic Acid Lactic Acid F/U @ 2Hr Calcium Total Creatine Kinase Troponin I High Sens 01/05/23 01/05/23 01/05/23 20:01 20:01 22:00 MCV MCH MCHC RDW Plt Count MPV Immature Gran % (Auto) Neut % (Auto) Lymph % (Auto) [place] % (Auto) Eos % (Auto) Baso % (Auto) Lymph # (Auto) [place] # (Auto) Eos # (Auto) Baso # (Auto) Abs Immat Gran (auto) Absolute Neuts (auto) Absolute Nucleated RBC Nucleated RBC % (auto) PT Whole Blood PT INR Whole Blood INR APTT Anion Gap 18 Estim Creat Clear Calc 43.5 Estimated GFR 58 POC Glucose Random Glucose 240 H Lactic Acid 5.3 H* Lactic Acid F/U @ 2Hr Calcium 10.1 Total Creatine Kinase 55 Troponin I High Sens 2.9 01/06/23 01/06/23 01/06/23 03:44 07:07 08:29 MCV MCH MCHC RDW Plt Count MPV Immature Gran % (Auto) Neut % (Auto) Lymph % (Auto) [place] % (Auto) Eos % (Auto) Baso % (Auto) Lymph # (Auto) [place] # (Auto) Eos # (Auto) Baso # (Auto) Abs Immat Gran (auto) Absolute Neuts (auto) Absolute Nucleated RBC Nucleated RBC % (auto) PT Whole Blood PT INR Whole Blood INR APTT Anion Gap Estim Creat Clear Calc Estimated GFR POC Glucose 108 133 H Random Glucose Lactic Acid Lactic Acid F/U @ 2Hr 1.1 Calcium Total Creatine Kinase Troponin I High Sens 01/06/23 11:41 MCV MCH MCHC RDW Plt Count MPV Immature Gran % (Auto) Neut % (Auto) Lymph % (Auto) [place] % (Auto) Eos % (Auto) Baso % (Auto) Lymph # (Auto) [place] # (Auto) Eos # (Auto) Baso # (Auto) Abs Immat Gran (auto) Absolute Neuts (auto) Absolute Nucleated RBC Nucleated RBC % (auto) PT Whole Blood PT INR Whole Blood INR APTT Anion Gap Estim Creat Clear Calc Estimated GFR POC Glucose 109 Random Glucose Lactic Acid Lactic Acid F/U @ 2Hr Calcium Total Creatine Kinase Troponin I High Sens Assessment and Plan (1) Seizure disorder: Status: Acute Plan 67-year-old male with pertinent history of essential hypertension, olc-vbtlmwe-ndgarprcx diabetes mellitus, history of CVA with right-sided residual deficits, mixed hyperlipidemia, seizure disorder, mood disorder, dementia who was sent to the emergency department for evaluation of altered mentation. Acute metabolic encephalopathy secondary to Acute hypoxemic respiratory failure and Sepsis in the setting of aspiration pneumonia.? Sepsis resolved IV Unasyn empirically.? Will keep patient NPO and consult speech for recommendations.?IV fluids Monitor oxygen saturation and wean as tolerated.? Maintain oxygen saturation greater than 90% hyperkalemia mild lokelma follow BMP DM2 ss, ada diet Essential hypertension.? low BP Hold antihypertensives in the setting of sepsis Seizure disorder Convert Keppra p.o. to IV until mentation improves Mood disorder Resume once mentation improves Dementia Maintain sleep-wake cycle moderate protein calorie malnutrition add ensure to diet once eating DVT prophylaxis:? Lovepurnimax Attending Dr. Avila continued hospital stay for supplemental oxygen and IV antibiotics Time Spent With Patient Time: Total time managing care of this patient today ____ minutes. Quality Stroke Does the patient have a stroke diagnosis?: No VTE Prior VTE?: No VTE Risk Level:: Medical - moderate - high VTE Device Contraindication: Treatment Not Indicated VTE Drug Contraindication: N/A - Med Ordered
--- NOTE | 2023-01-06 12:39 | MHC.SLORD ---
Addendum entered and electronically signed by YASMIN Blount 01/06/23 15:12: Per RN request, LOCK TECHNICIAN attempted clinical swallow eval again in mid afternoon. Pt declined. Pt was again informed that he will not be able to eat/drink until he passes evaluation. Original Note: Speech Language Pathology Order Status: Per Yuriy Thomas, pt's baseline diet is mechanical soft solids (ground meat, soft breads, soft cookies OK), thin liquids, pills crushed in pudding. LOCK TECHNICIAN attempted to see pt 2X, pt declined both times. RN and MD notified. RN to send message to LOCK TECHNICIAN if pt wakes up and requests food/drink later today. LOCK TECHNICIAN to continue to follow.
[2023-01-06] MEDS: Dextrose 5 % and 0.9 % NaCl 1,000 ML 100 ML IVCONT ×2 (12:53→22:51)
[2023-01-06 17:17] LABS: Glucose, Whole Blood 118 mg/dL (60-115)
[2023-01-06 21:38] LABS: Glucose, Whole Blood 143 mg/dL (60-115)
[2023-01-06] MEDS: Enoxaparin Sodium 40 MG/0.4 ML SYRINGE SUBCUT (21:41)
[2023-01-07 04:00] VITALS: BP 128/71; PULSE 74; RESP 20; TEMP 36.6; O2SAT 96
[2023-01-07 04:38] LABS: Glucose, Whole Blood 146 mg/dL (60-115)
[2023-01-07] MEDS: Ampicillin Sodium/Sulbactam Na 3 GM in 0.9 % Sodium Chloride 100 ML IV ×2 (05:34→12:45)
[2023-01-07 07:36] LABS: Glucose, Whole Blood 160 mg/dL (60-115)
[2023-01-07 07:39] VITALS: BP 155/74; PULSE 54; RESP 20; TEMP 36.1; O2SAT 100
[2023-01-07] MEDS: 0.9 % Sodium Chloride Flush 3 ML SYRINGE IVFLUSH ×3 (07:44→23:11)
[2023-01-07 08:45] LABS: Hematocrit 29.1 % (42.0-52.0); Hemoglobin 9.4 g/dl (14.0-18.0); Mean Corpuscular HGB Conc 32.3 g/dl (31.0-36.0); Mean Corpuscular Hemoglobin 30.2 pg (27.0-33.0); Mean Corpuscular Volume 93.6 fL (80.0-98.0); Platelet Count 200 X10*3/uL (160-400); Red Blood Count 3.11 X10*6/uL (4.60-5.80); Red Cell Distribution Width 15.9 % (11.0-16.0); White Blood Count 9.3 X10*3/uL (4.8-10.8)
[2023-01-07 09:03] LABS: Anion Gap 10 (12-20); Blood Urea Nitrogen 9 mg/dL (9-16); Calcium 9.3 mg/dL (8.4-10.2); Carbon Dioxide 26 mmol/L (22-29); Chloride 107 mmol/L (96-108); Estimated Glomerular Filt Rate > 60; Glucose Random 182 mg/dL (60-115); Potassium 4.1 mmol/L (3.3-5.1); Sodium 139 mmol/L (135-145)
[2023-01-07] MEDS: Dextrose 5 % and 0.9 % NaCl 1,000 ML 100 ML IVCONT (09:12)
--- NOTE | 2023-01-07 09:36 | P.PNIM_ITS ---
Subjective Subjective Date of Service: 01/07/23 Review of Systems Follow up encephalopathy, Aspiration pna still sleepy, opens eyes to name Physical Exam Vital Signs: Vital Signs: Last Vital Signs Temp 97.0 F 01/07/23 07:39 Pulse 54 01/07/23 07:39 Resp 20 01/07/23 07:39 BP 155/74 H 01/07/23 07:39 Pulse Ox 100 01/07/23 07:39 O2 Del Method Nasal Cannula 01/07/23 07:39 O2 Flow Rate 1 01/07/23 07:39 Oxygen Flow Rate 4 01/05/23 19:51 BMI result Body Mass Index 16.6 Appearing in no acute distress lung sounds are clear to auscultation heart regular rate rhythm, clear S1, S2 positive bowel sounds, abdomen is soft, nontender neuro patient opens eyes to name legs folded in, able to extend out with assistance Objective Data Active Medications Acetaminophen (Acetaminophen 325 Mg Tablet) 650 mg PO Q6H PRN PRN Reason: Pain, Mild (Pain Scale 1-3) Acetaminophen (Acetaminophen Supp 650 Mg Supp.Rect) 650 mg [place] Q6H PRN PRN Reason: Pain, Mild (Pain Scale 1-3) Enoxaparin Sodium (Enoxaparin Sodium 40 Mg/0.4 Ml Syringe) 40 mg SUBCUT Q24H [facility] Last Admin: 01/06/23 21:41 Dose: 40 mg Documented By: JOCY Glucose (Glucose Gel 15 Gm Gel..Gram.) 15 gm PO Q15M PRN; Protocol PRN Reason: per Hypoglycemia Standing Ord. Dextrose (D10) 250 mls @ 750 mls/hr IV Q15M PRN; Protocol PRN Reason: per Hypoglycemia Standing Ord. Levetiracetam (Keppra) 1,000 mg in 100 mls @ 400 mls/hr IV Q12H [facility] Last Infusion: 01/06/23 22:50 Dose: 0 mls/hr Documented By: JOCY Ampicillin Sodium/Sulbactam (Sodium 3 gm/ Sodium Chloride) 100 mls @ 200 mls/hr IV Q6H [facility] Last Infusion: 01/07/23 06:28 Dose: 0 mls/hr Documented By: JOCY Dextrose/Sodium Chloride (D5ns) 1,000 mls @ 100 mls/hr IVCONT .Q10H [facility] Last Admin: 01/07/23 09:12 Dose: 100 mls/hr Documented By: JENNIFER Insulin Human Lispro (Insulin Lispro 100 Unit/Ml 3 Ml Vial) 0 unit SUBCUT Q6H [facility]; Protocol Last Admin: 01/07/23 09:14 Dose: Not Given Documented By: JENNIFER Non-Admin Reason: NPO Melatonin (Melatonin 3 Mg Tablet) 6 mg PO BEDTIME PRN PRN Reason: Insomnia Ondansetron HCl (Ondansetron Hcl 4 Mg/2 Ml Vial) 4 mg IVPUSH Q8H PRN PRN Reason: Nausea and Vomiting Pharmacy Consult (Consult Rx Perform Med Rec) 1 each MISCELLANE ONCE PRN PRN Reason: Consult order Sodium Chloride (0.9 % Sodium Chloride Flush 3 Ml Syringe) 3 ml IVFLUSH QSHIFT [facility] Last Admin: 01/07/23 07:44 Dose: 3 ml Documented By: JENNIFER Labs 01/07/23 08:26 01/07/23 08:26 Labs: Laboratory Results - last 24 hr 01/06/23 01/06/23 01/06/23 11:41 17:13 21:34 MCV MCH MCHC RDW Plt Count MPV Absolute Nucleated RBC Nucleated RBC % (auto) Anion Gap Estim Creat Clear Calc Estimated GFR POC Glucose 109 118 H 143 H Random Glucose Calcium 01/07/23 01/07/23 01/07/23 04:33 07:22 08:26 MCV 93.6 MCH 30.2 MCHC 32.3 RDW 15.9 Plt Count 200 MPV 10.0 Absolute Nucleated RBC 0.000 Nucleated RBC % (auto) 0.0 Anion Gap Estim Creat Clear Calc Estimated GFR POC Glucose 146 H 160 H Random Glucose Calcium 01/07/23 08:26 MCV MCH MCHC RDW Plt Count MPV Absolute Nucleated RBC Nucleated RBC % (auto) Anion Gap 10 L Estim Creat Clear Calc 75.0 Estimated GFR > 60 POC Glucose Random Glucose 182 H Calcium 9.3 D Microbiology Microbiology Results: Microbiology 01/05/23 22:39 Blood Culture - Preliminary Blood - Venous No growth after 24 hours. 01/05/23 22:39 Blood Culture - Preliminary Blood - Venous No growth after 24 hours. Assessment and Plan (1) Seizure disorder: Status: Acute Plan 67-year-old male with pertinent history of essential hypertension, cey-thdngnr-ohrhivayn diabetes mellitus, history of CVA with right-sided res idual deficits, mixed hyperlipidemia, seizure disorder, mood disorder, dementia who was sent to the emergency department for evaluation of altered mentation. Acute metabolic encephalopathy secondary to Acute hypoxemic respiratory failure and Sepsis in the setting of aspiration pneumonia.? Sepsis resolved IV Unasyn empirically.? Will keep patient NPO and consult speech for recommendations.?IV fluids Monitor oxygen saturation and wean as tolerated.? Maintain oxygen saturation greater than 90% hyperkalemia. Resolved mild lokelma follow BMP DM2 ss, ada diet Essential hypertension.? low BP, improving Hold antihypertensives in the setting of sepsis, restart as BP allows Seizure disorder Convert Keppra p.o. to IV until mentation improves Mood disorder Resume once mentation improves Dementia Maintain sleep-wake cycle moderate protein calorie malnutrition add ensure to diet once eating DVT prophylaxis:? Lovebrayden Attending Dr. Avila continued hospital stay for supplemental oxygen and IV antibiotics Time Spent With Patient Time: Total time managing care of this patient today ____ minutes. Quality Stroke Does the patient have a stroke diagnosis?: No VTE Prior VTE?: No VTE Risk Level:: Medical - moderate - high VTE Device Contraindication: Treatment Not Indicated VTE Drug Contraindication: N/A - Med Ordered
[2023-01-07] MEDS: levETIRAcetam in NaCl (iso-os) 1,000 MG/100 ML PIGGYBACK 400 MG IV ×2 (10:51→23:01)
[2023-01-07 11:31] LABS: Glucose, Whole Blood 137 mg/dL (60-115)
[2023-01-07 11:58] VITALS: BP 142/62; PULSE 52; RESP 20; TEMP 36.1; O2SAT 100
--- NOTE | 2023-01-07 12:10 | MHC.SL.SWA ---
Speech Pathologist Impression: Risk of aspiration, oral phase dysphagia Risk of Aspiration Due to: Neurological Condition Dysphasia Diet Status: UPGRADE to NDD2/thin Liquid Consistency and Strategies for Safe Swallow: Liquid Intake Recommendation: Thin Liquid Intake Strategies: Small Sips No Straws Solid Food Consistency: Dietary Recommendations: Grnd/Mech Altered (NDD2) Additional Modifications to Solid Foods: Recommend UPGRADE from NPO to pt's reported baseline at [facility] ALTERED (NDD2) solids with THIN liquids (no straws), pills CRUSHED in PUDDING. Recommend total supervision, provide assistance as needed with tray set up and throughout meal. Ensure aspiration precautions. Oral Medication Intake: Crushed with Puree Please contact the pharmacy regarding appropriate crushable or liquid drug formulations that are available whenever modified delivery is recommended. Compensatory Strategies and Precautions to be Taken for Safe Swallow: Sitting Upright (90 deg) Double Swallow No Straw Small Bites and Sips Rate of Ingestion Change Avoid Specific Foods Supervision While Eating and Drinking for Safe Swallow: Total Supervision (1:1) Foods to Avoid: Hard, tough to chew solids; sticky foods; mixed consistencies (i.e. separation of thin liquid; thin broth soups w/ solid ingredients) Swallowing Recommended Treatments: Compens. Strategy Educat. Recommendation for Speech: Inpatient Speech Therapy Comment: PHYSICS DEPARTMENT CHAIR will f/u 1-2x. Casting Technician Clinican/Clinical Fellow: No Supervisory Statement: I have reviewed and agree with the student/clinical fellow's documentation: N/A Speech Language Pathologist: Olesya Valenzuela M.A., CCC-PHYSICS DEPARTMENT CHAIR
[2023-01-07 14:08] LABS: Glucose, Whole Blood 164 mg/dL (60-115)
[2023-01-07 15:06] VITALS: BP 156/90; PULSE 57; RESP 20; TEMP 36.3; O2SAT 98
[2023-01-07 16:13] LABS: Glucose, Whole Blood 144 mg/dL (60-115)
[2023-01-07 19:09] VITALS: BP 162/90; PULSE 80; RESP 20; TEMP 36.6; O2SAT 98
[2023-01-07 19:38] LABS: Glucose, Whole Blood 117 mg/dL (60-115)
[2023-01-07] MEDS: Enoxaparin Sodium 40 MG/0.4 ML SYRINGE SUBCUT (23:01)
[2023-01-07 23:51] VITALS: BP 163/83; PULSE 70; RESP 18; TEMP 36.7; O2SAT 97
[2023-01-08] VITALS (7 sets, daily range): BP systolic 141–174; BP diastolic 64–79; PULSE 54–94; RESP 16–20; TEMP 36.2–36.9; O2SAT 92–100
[2023-01-08] MEDS: Ampicillin Sodium/Sulbactam Na 3 GM in 0.9 % Sodium Chloride 100 ML IV ×4 (00:09→18:05)
[2023-01-08] MEDS: Dextrose 5 % and 0.9 % NaCl 1,000 ML 100 ML IVCONT (03:17)
[2023-01-08 03:19] LABS: Glucose, Whole Blood 114 mg/dL (60-115)
[2023-01-08 07:42] LABS: Glucose, Whole Blood 160 mg/dL (60-115)
[2023-01-08] MEDS: Sennosides 8.6 MG TABLET PO (08:36)
[2023-01-08] MEDS: lisinopriL 10 MG TABLET PO (08:36)
[2023-01-08] MEDS: Folic Acid 1 MG TABLET PO (08:36)
[2023-01-08] MEDS: Escitalopram Oxalate 5 MG TABLET PO (08:36)
[2023-01-08] MEDS: carBAMazepine 200 MG TABLET PO ×2 (08:36→22:58)
[2023-01-08] MEDS: levETIRAcetam Oral Soln 500 MG/5 ML 1000 MG PO ×2 (10:24→22:58)
[2023-01-08 11:29] LABS: Glucose, Whole Blood 144 mg/dL (60-115)
--- NOTE | 2023-01-08 11:57 | MHC.CLN ---
F/U DIET=DIABETIC 1800 KCAL, NDD2 CONSISTENCY. FOLLOW CYBER SECURITY INSTRUCTOR RECOMMENDATIONS FOR DIET CONSISTENCY. DX ASPIRATION PNEUMONIA. RECENT POOR PO WITH NPO STATUS UNTIL 01/07. STAGE II WOUND TO RIGHT HEEL. ADDING ENSURE MAX PROTEIN BID (300 KCALS, 60 G PROTEIN) TO PROMOTE WOUND HEALING AND NUTRITIONAL STATUS. FOLLOW FOR DIET TOLERANCE, INTAKE, WOUND HEALING.
--- NOTE | 2023-01-08 13:08 | P.PNIM_ITS ---
Subjective Subjective Date of Service: 01/08/23 Interval History: Awake, verbal though speech is quite simple Denies any pain Weaned to room air Review of Systems Review of Systems: Yes all other systems are reviewed and are negative Physical Exam Vital Signs: Vital Signs: Last Vital Signs Temp 97.1 F 01/08/23 07:35 Pulse 94 01/08/23 08:41 Resp 20 01/08/23 08:41 BP 141/64 H 01/08/23 07:35 Pulse Ox 93 01/08/23 08:41 O2 Del Method Room Air 01/08/23 08:41 O2 Flow Rate 1.5 01/08/23 07:35 Oxygen Flow Rate 4 01/05/23 19:51 BMI result Body Mass Index 16.6 Gen: in no acute distress HEENT: sclera anicteric, moist mucus membranes Neck: supple Lungs: diminished bilaterally Heart: regular rate and rhythm, no murmurs Abd: soft, non-tender, non-distended Ext: no edema Skin: warm/well-perfused Neuro: alert and oriented to self, R hemiplegia Psych: appropriate affect Objective Data Active Medications Acetaminophen (Acetaminophen 325 Mg Tablet) 650 mg PO Q6H PRN PRN Reason: Pain, Mild (Pain Scale 1-3) Acetaminophen (Acetaminophen Supp 650 Mg Supp.Rect) 650 mg [place] Q6H PRN PRN Reason: Pain, Mild (Pain Scale 1-3) Atorvastatin Calcium (Atorvastatin Calcium 40 Mg Tablet) 40 mg PO BEDTIME COUNT INCLUDES THE [facility] Carbamazepine (Carbamazepine 200 Mg Tablet) 200 mg PO BID COUNT INCLUDES THE [facility] Last Admin: 01/08/23 08:36 Dose: 200 mg Documented By: LIANNA Docusate Sodium (Docusate Sodium 100 Mg Capsule) 100 mg PO DAILY COUNT INCLUDES THE [facility] Last Admin: 01/08/23 08:37 Dose: Not Given Documented By: LIANNA Non-Admin Reason: unable to swallow Enoxaparin Sodium (Enoxaparin Sodium 40 Mg/0.4 Ml Syringe) 40 mg SUBCUT Q24H COUNT [facility]CLUD[facility] Last Admin: 01/07/23 23:01 Dose: 40 mg Documented By: JOSUÉ Escitalopram Oxalate (Escitalopram Oxalate 5 Mg Tablet) 5 mg PO DAILY COUNT INCLUDES THE [facility] Last Admin: 01/08/23 08:36 Dose: 5 mg Documented By: LIANNA Folic Acid (Folic Acid 1 Mg Tablet) 1 mg PO DAILY COUNT INCLUDES THE [facility] Last Admin: 01/08/23 08:36 Dose: 1 mg Documented By: LIANNA Glucose (Glucose Gel 15 Gm Gel..Gram.) 15 gm PO Q15M PRN; Protocol PRN Reason: per Hypoglycemia Standing Ord. Dextrose (D10) 250 mls @ 750 mls/hr IV Q15M PRN; Protocol PRN Reason: per Hypoglycemia Standing Ord. Ampicillin Sodium/Sulbactam (Sodium 3 gm/ Sodium Chloride) 100 mls @ 200 mls/hr IV Q6H COUNT INCLUDES THE [facility] Last Admin: 01/08/23 12:58 Dose: 200 mls/hr Documented By: LIANNA Insulin Human Lispro (Insulin Lispro 100 Unit/Ml 3 Ml Vial) 0 unit SUBCUT Q6H COUNT [facility]CLUDES THE [facility]; Protocol Last Admin: 01/08/23 12:01 Dose: Not Given Documented By: LIANNA Non-Admin Reason: No Insulin Coverage Levetiracetam (Levetiracetam Oral Soln 500 Mg/5 Ml) 1,000 mg PO BID COUNT INCLUDES THE [facility] Last Admin: 01/08/23 10:24 Dose: 1,000 mg Documented By: LIANNA Lisinopril (Lisinopril 10 Mg Tablet) 10 mg PO DAILY COUNT INCLUDES THE [facility]; Protocol Last Admin: 01/08/23 08:36 Dose: 10 mg Documented By: LIANNA Melatonin (Melatonin 3 Mg Tablet) 6 mg PO BEDTIME PRN PRN Reason: Insomnia Ondansetron HCl (Ondansetron Hcl 4 Mg/2 Ml Vial) 4 mg IVPUSH Q8H PRN PRN Reason: Nausea and Vomiting Pharmacy Consult (Consult Rx Perform Med Rec) 1 each MISCELLANE ONCE PRN PRN Reason: Consult order Senna (Sennosides 8.6 Mg Tablet) 8.6 mg PO DAILY COUNT INCLUDES THE [facility] Last Admin: 01/08/23 08:36 Dose: 8.6 mg Documented By: LIANNA Sodium Chloride (0.9 % Sodium Chloride Flush 3 Ml Syringe) 3 ml IVFLUSH QSHIFT COUNT INCLUDES THE [facility] Last Admin: 01/08/23 07:36 Dose: Not Given Documented By: LIANNA Non-Admin Reason: IV Running Labs 01/07/23 08:26 01/07/23 08:26 Labs: Laboratory Results - last 24 hr 01/05/23 01/07/23 01/07/23 19:43 16:08 19:33 POC Glucose 164 H 144 H 117 H 01/08/23 01/08/23 01/08/23 03:09 07:37 11:25 POC Glucose 114 160 H 144 H Microbiology Microbiology Results: Microbiology 01/05/23 22:39 Blood Culture - Preliminary Blood - Venous No growth after 48 hours. 01/05/23 22:39 Blood Culture - Preliminary Blood - Venous No growth after 48 hours. Assessment and Plan (1) Seizure disorder: Status: Acute Plan hosp d#4 67yo M with HTN, DM2, hx CVA with R hemiplegia, HLD, seizure disorder, mood disorder, dementia sent in for AMS # acute metabolic encephalopathy due to acute hypoxic resp failure due to sepsis from aspiration PNA - resolving, on ampicillin-sulbactam d#4 - SANITATION TRUCK CLEANER consulted: Recommend UPGRADE from NPO to pt's reported baseline at [facility] ALTERED (NDD2) solids with THIN liquids (no straws), pills CRUSHED in PUDDING. Recommend total supervision, provide assistance as needed with tray set up and throughout meal. Ensure aspiration precautions. # hyperK - mild, resolved s/p Lokelma # DM2 - moises-dose lispro # HTN - antihypertensives held when presented septic; resume lisinopril today, add back amlodipine if needed # seizure disorder - levetiracetam IV->PO - carbamazepine # mood disorder - escitalopram # mod pr-hannah malnutrition - supplements # VTE ppx - LMWH # dispo - anticipate LTC vs. STR->LTC, CM working on placement Time Spent With Patient Time: Total time managing care of this patient today __35__ minutes. Quality Stroke Does the patient have a stroke diagnosis?: No VTE Prior VTE?: No VTE Risk Level:: Medical - moderate - high VTE Device Contraindication: Treatment Not Indicated VTE Drug Contraindication: N/A - Med Ordered
--- NOTE | 2023-01-08 13:44 | MHC.CM.PN ---
Male patient DX Aspiration PNA Spoke with Sister Dania. She was notified that we have not received any bed offers from the SNFs referred. She did not have a preference of facilities. Additional referrals have been sent. She stated that she is agreeable with patients return to [facility] if another facility can not be obtained by discharge. DP SNF via BLS.
--- NOTE | 2023-01-08 15:25 | MHC.SL.SWA ---
Speech Pathologist Impression: Risk of aspiration, oral phase dysphagia Risk of Aspiration Due to: Neurological Condition Dysphasia Diet Status: No change Liquid Consistency and Strategies for Safe Swallow: Liquid Intake Recommendation: Thin Liquid Intake Strategies: Small Sips No Straws Solid Food Consistency: Dietary Recommendations: Grnd/Mech Altered (NDD2) Oral Medication Intake: Crushed with Puree Please contact the pharmacy regarding appropriate crushable or liquid drug formulations that are available whenever modified delivery is recommended. Compensatory Strategies and Precautions to be Taken for Safe Swallow: Sitting Upright (90 deg) Double Swallow No Straw Small Bites and Sips Rate of Ingestion Change Avoid Specific Foods Supervision While Eating and Drinking for Safe Swallow: Total Supervision (1:1) Foods to Avoid: Hard, tough to chew solids; sticky foods; mixed consistencies (i.e. separation of thin liquid; thin broth soups w/ solid ingredients) Swallowing Recommended Treatments: Compens. Strategy Educat. Recommendation for Speech: Inpatient Speech Therapy Comment: Recommend pt continue with baseline diet (per Yuriy Thomas) of ground/mech altered solids (NDD2) and thin liquids (NO STRAW) w/ pills crushed in puree. Recommend total supervision to provide assistance as needed and provide cues. Pt benefits from cues to take small bites, slow down, wait to finish one bite before presenting subsequent bite. Ensure aspiration precautions. [employer] will f/u 1-2x Data Review Specialist Clinican/Clinical Fellow: No Supervisory Statement: I have reviewed and agree with the student/clinical fellow's documentation: N/A Speech Language Pathologist: Olesya Valenzuela M.A., [facility]-[employer] [employer]
[2023-01-08 16:19] LABS: Glucose, Whole Blood 134 mg/dL (60-115)
[2023-01-08] MEDS: 0.9 % Sodium Chloride Flush 3 ML SYRINGE IVFLUSH ×2 (16:36→23:01)
[2023-01-08 20:50] LABS: Glucose, Whole Blood 113 mg/dL (60-115)
[2023-01-08] MEDS: Atorvastatin Calcium 40 MG TABLET PO (22:58)
[2023-01-08] MEDS: Enoxaparin Sodium 40 MG/0.4 ML SYRINGE SUBCUT (22:58)
[2023-01-09] MEDS: Ampicillin Sodium/Sulbactam Na 3 GM in 0.9 % Sodium Chloride 100 ML IV ×5 (00:36→23:27)
[2023-01-09 02:55] VITALS: BP 151/72; PULSE 60; RESP 17; TEMP 36.3; O2SAT 96
[2023-01-09 06:44] LABS: Hematocrit 23.9 % (42.0-52.0); Hemoglobin 7.9 g/dl (14.0-18.0); Mean Corpuscular HGB Conc 33.1 g/dl (31.0-36.0); Mean Corpuscular Hemoglobin 29.8 pg (27.0-33.0); Mean Corpuscular Volume 90.2 fL (80.0-98.0); Mean Platelet Volume 10.5 fL (9.4-12.4); Platelet Count 233 X10*3/uL (160-400); Red Blood Count 2.65 X10*6/uL (4.60-5.80)
[2023-01-09 07:04] LABS: Anion Gap 13 (12-20); Blood Urea Nitrogen 9 mg/dL (9-16); Calcium 9.2 mg/dL (8.4-10.2); Carbon Dioxide 25 mmol/L (22-29); Chloride 105 mmol/L (96-108); Creatinine Clr Calc Pharmacy 79.2; Estimated Glomerular Filt Rate > 60; Glucose Random 112 mg/dL (60-115); Potassium 3.7 mmol/L (3.3-5.1); Sodium 139 mmol/L (135-145)
[2023-01-09 07:14] LABS: Procalcitonin 0.39 ng/mL
[2023-01-09 07:23] VITALS: BP 140/78; PULSE 69; RESP 18; TEMP 36.7; O2SAT 96
[2023-01-09 07:35] LABS: Glucose, Whole Blood 122 mg/dL (60-115)
[2023-01-09 07:52] LABS: Immature Retic Fraction 11.1 % (2.3-13.4); Retic HGB Equivalent 33.3 pg (30.0-35.0); Reticulocytes Absolute 0.025 X10*6/uL (0.026-0.095)
[2023-01-09 07:59] LABS: Iron 51 mcg/dL (45-160); Lactate Dehydrogenase 143 U/L (118-273); Percent Iron Saturation 30 % (15-50); Total Iron Binding Capacity 168 mcg/dL (228-428); Unsaturated Iron Binding 117 ug/dL
[2023-01-09] MEDS: levETIRAcetam Oral Soln 500 MG/5 ML 1000 MG PO ×2 (08:25→20:48)
[2023-01-09] MEDS: Escitalopram Oxalate 5 MG TABLET PO (08:25)
[2023-01-09] MEDS: lisinopriL 10 MG TABLET PO (08:25)
[2023-01-09] MEDS: Folic Acid 1 MG TABLET PO (08:25)
[2023-01-09] MEDS: carBAMazepine 200 MG TABLET PO ×2 (08:25→20:49)
[2023-01-09] MEDS: 0.9 % Sodium Chloride Flush 3 ML SYRINGE IVFLUSH ×3 (08:25→20:50)
[2023-01-09] MEDS: Sennosides 8.6 MG TABLET PO (08:25)
[2023-01-09 08:33] LABS: Ferritin 386 ng/mL (20-250); Folate 16.9 ng/mL (> or = 4.0); Vitamin B12 470 pg/mL (200-900)
--- NOTE | 2023-01-09 10:46 | MHC.SL.SWA ---
Speech Pathologist Impression: Risk of Aspiration Due to: Neurological Condition Dysphasia Diet Status: Recommend patient continue on current diet: Ground Mechanical (NDD2) with thin liquids, pills crushed in puree. Liquid Consistency and Strategies for Safe Swallow: Liquid Intake Recommendation: Thin Liquid Intake Strategies: Small Sips Solid Food Consistency: Dietary Recommendations: Grnd/Mech Altered (NDD2) Additional Modifications to Solid Foods: Patient will continue to require direct supervision during meals, to assist patient as needed, cue if patient is is being impulsive and eating to quickly. Oral Medication Intake: Crushed with Puree Please contact the pharmacy regarding appropriate crushable or liquid drug formulations that are available whenever modified delivery is recommended. Compensatory Strategies and Precautions to be Taken for Safe Swallow: Sitting Upright (90 deg) Double Swallow No Straw Small Bites and Sips Rate of Ingestion Change Avoid Specific Foods Supervision While Eating and Drinking for Safe Swallow: Total Supervision (1:1) Foods to Avoid: Hard, tough to chew solids; sticky foods; mixed consistencies (i.e. separation of thin liquid; thin broth soups w/ solid ingredients) Swallowing Recommended Treatments: Compens. Strategy Educat. Recommendation for Speech: Inpatient Speech Therapy Comment: Patient seen at conclusion of breakfast today. Patient was alone in room, eating some vanilla yogurt from a container with a spoon. Patient was sitting up right, and able to self feed, taking reasonable bites of food without impulsive behavior noted. Patient occasionally appeared to freeze (no motion, holding spoon and cup, or holding food in mouth), but with verbal prompt would respond and resume eating. Patient reported that he ate most of his breakfast but didn't like the eggs. CASING CREW then came into room and reported that patient had done well on oatmeal that came with tray, but coughed on eggs, which she described as dry and crumbly. She reported that she removed the eggs after she noted him coughing. Patient was observed taking sips of water by straw and cup sip, evidencing no difficulties and taking reasonable small sips. Recommend patient continue on current diet: Ground Mechanical (NDD2) with thin liquids, pills crushed in puree. Patient will continue to require direct supervision during meals, to assist patient as needed, cue if patient is is being impulsive and eating to quickly. Frequency/Duration: Date Range for Service Req: Timeline to reassess: Director Of Online Merchandising Clinican/Clinical Fellow: No Supervisory Statement: I have reviewed and agree with the student/clinical fellow's documentation: N/A Speech Language Pathologist: Kiesha Dorado M.A., [facility]-HUMAN RESOURCES ASSISTANT MANAGER
[2023-01-09 11:48] LABS: Glucose, Whole Blood 166 mg/dL (60-115)
--- NOTE | 2023-01-09 11:55 | P.PNIM_ITS ---
Subjective Subjective Date of Service: 01/09/23 Interval History: denies cough or dyspnea no zachary GI bleeding Review of Systems Review of Systems: Yes all other systems are reviewed and are negative Physical Exam Vital Signs: Vital Signs: Last Vital Signs Temp 98.0 F 01/09/23 07:23 Pulse 69 01/09/23 07:23 Resp 18 01/09/23 07:23 BP 140/78 H 01/09/23 07:23 Pulse Ox 96 01/09/23 07:23 O2 Del Method Room Air 01/09/23 07:23 O2 Flow Rate 1.5 01/08/23 07:35 Oxygen Flow Rate 4 01/05/23 19:51 BMI result Body Mass Index 16.6 Gen: in no acute distress HEENT: sclera anicteric, moist mucus membranes Neck: supple Lungs: diminished bilaterally Heart: regular rate and rhythm, no murmurs Abd: soft, non-tender, non-distended Ext: no edema Skin: warm/well-perfused Neuro: alert and oriented to self, R hemiplegia Psych: appropriate affect Objective Data Active Medications Acetaminophen (Acetaminophen 325 Mg Tablet) 650 mg PO Q6H PRN PRN Reason: Pain, Mild (Pain Scale 1-3) Acetaminophen (Acetaminophen Supp 650 Mg Supp.Rect) 650 mg [place] Q6H PRN PRN Reason: Pain, Mild (Pain Scale 1-3) Atorvastatin Calcium (Atorvastatin Calcium 40 Mg Tablet) 40 mg PO BEDTIME [facility] Last Admin: 01/08/23 22:58 Dose: 40 mg Documented By: SY Carbamazepine (Carbamazepine 200 Mg Tablet) 200 mg PO BID [facility] Last Admin: 01/09/23 08:25 Dose: 200 mg Documented By: GARY Docusate Sodium (Docusate Sodium 100 Mg Capsule) 100 mg PO DAILY [facility] Last Admin: 01/09/23 08:25 Dose: Not Given Documented By: GARY Non-Admin Reason: difficulty swallowing Enoxaparin Sodium (Enoxaparin Sodium 40 Mg/0.4 Ml Syringe) 40 mg SUBCUT Q24H [facility] Last Admin: 01/08/23 22:58 Dose: 40 mg Documented By: SY Escitalopram Oxalate (Escitalopram Oxalate 5 Mg Tablet) 5 mg PO DAILY [facility] Last Admin: 01/09/23 08:25 Dose: 5 mg Documented By: GARY Folic Acid (Folic Acid 1 Mg Tablet) 1 mg PO DAILY [facility] Last Admin: 01/09/23 08:25 Dose: 1 mg Documented By: GARY Glucose (Glucose Gel 15 Gm Gel..Gram.) 15 gm PO Q15M PRN; Protocol PRN Reason: per Hypoglycemia Standing Ord. Dextrose (D10) 250 mls @ 750 mls/hr IV Q15M PRN; Protocol PRN Reason: per Hypoglycemia Standing Ord. Ampicillin Sodium/Sulbactam (Sodium 3 gm/ Sodium Chloride) 100 mls @ 200 mls/hr IV Q6H [facility] Last Infusion: 01/09/23 07:19 Dose: 0 mls/hr Documented By: GARY Insulin Human Lispro (Insulin Lispro 100 Unit/Ml 3 Ml Vial) 0 unit SUBCUT QIDACHS [facility]; Protocol Last Admin: 01/09/23 07:38 Dose: Not Given Documented By: GARY Non-Admin Reason: No Insulin Coverage Levetiracetam (Levetiracetam Oral Soln 500 Mg/5 Ml) 1,000 mg PO BID [facility] Last Admin: 01/09/23 08:25 Dose: 1,000 mg Documented By: GARY Lisinopril (Lisinopril 10 Mg Tablet) 10 mg PO DAILY [facility]; Protocol Last Admin: 01/09/23 08:25 Dose: 10 mg Documented By: GARY Melatonin (Melatonin 3 Mg Tablet) 6 mg PO BEDTIME PRN PRN Reason: Insomnia Ondansetron HCl (Ondansetron Hcl 4 Mg/2 Ml Vial) 4 mg IVPUSH Q8H PRN PRN Reason: Nausea and Vomiting Pharmacy Consult (Consult Rx Perform Med Rec) 1 each MISCELLANE ONCE PRN PRN Reason: Consult order Senna (Sennosides 8.6 Mg Tablet) 8.6 mg PO DAILY [facility] Last Admin: 01/09/23 08:25 Dose: 8.6 mg Documented By: GARY Sodium Chloride (0.9 % Sodium Chloride Flush 3 Ml Syringe) 3 ml IVFLUSH QSHIFT [facility] Last Admin: 01/09/23 08:25 Dose: 3 ml Documented By: GARY Labs 01/09/23 05:31 01/09/23 05:31 Labs: Laboratory Results - last 24 hr 01/08/23 01/08/2323 16:13 20:45 05:31 MCV 90.2 MCH 29.8 MCHC 33.1 RDW 15.0 Plt Count 233 MPV 10.5 Absolute Nucleated RBC 0.000 Nucleated RBC % (auto) 0.0 Absolute Retic 0.025 L Percent Retic 1.0 Immature Retic Fraction 11.1 Retic Hgb Equivalent 33.3 Anion Gap Estim Creat Clear Calc Estimated GFR POC Glucose 134 H 113 Random Glucose Calcium Iron TIBC % Saturation Unsat Iron Binding Ferritin Lactate Dehydrogenase Vitamin B12 Folate Procalcitonin 01/09/23 01/09/23 01/09/23 05:31 07:21 11:32 MCV MCH MCHC RDW Plt Count MPV Absolute Nucleated RBC Nucleated RBC % (auto) Absolute Retic Percent Retic Immature Retic Fraction Retic Hgb Equivalent Anion Gap 13 Estim Creat Clear Calc 79.2 Estimated GFR > 60 POC Glucose 122 H 166 H Random Glucose 112 Calcium 9.2 Iron 51 TIBC 168 L % Saturation 30 Unsat Iron Binding 117 Ferritin 386 H Lactate Dehydrogenase 143 Vitamin B12 470 Folate 16.9 Procalcitonin 0.39 Assessment and Plan (1) Seizure disorder: Status: Acute Plan hosp d#5 67yo M with HTN, DM2, hx CVA with R hemiplegia, HLD, seizure disorder, mood dis order, dementia sent in for AMS # acute metabolic encephalopathy due to acute hypoxic resp failure due to sepsis from aspiration PNA - resolving, on ampicillin-sulbactam d#5 - OFFICE ENGINEER consulted: Recommend UPGRADE from NPO to pt's reported baseline at [facility] AL[facility]ED (NDD2) solids with THIN liquids (no straws), pills CRUSHED in PUDDING. Recommend total supervision, provide assistance as needed with tray set up and throughout meal. Ensure aspiration precautions. # normocytic hypoproliferative anemia - T+S, recheck H+H, send FOBT. likely anemia of chronic disease # hyperK - mild, resolved s/p Lokelma # DM2 - moises-dose lispro # HTN - antihypertensives held when presented septic; resumed lisinopril, add back amlodipine today # seizure disorder - levetiracetam - carbamazepine # mood disorder - escitalopram # mod pr-hannah malnutrition - supplements # VTE ppx - LMWH # dispo - anticipate LTC vs. STR->LTC, CM working on placement In clinical judgment, the patient requires continued inpatient hospitalization for the following reasons: anemia, IV ABX Time Spent With Patient Time: Total time managing care of this patient today __35__ minutes. Quality Stroke Does the patient have a stroke diagnosis?: No VTE Prior VTE?: No VTE Risk Level:: Medical - moderate - high VTE Device Contraindication: Treatment Not Indicated VTE Drug Contraindication: N/A - Med Ordered
[2023-01-09] MEDS: amLODIPine Besylate 5 MG TABLET PO (13:18)
[2023-01-09 14:45] LABS: Hemoglobin 8.9 g/dl (14.0-18.0)
[2023-01-09 15:50] VITALS: BP 130/50; PULSE 85; RESP 20; TEMP 37.1; O2SAT 99
[2023-01-09 15:50] LABS: Glucose, Whole Blood 111 mg/dL (60-115)
[2023-01-09 18:12] LABS: OBS Int Ctl Valid YES; OBS1 NEGATIVE (NEGATIVE)
[2023-01-09 19:12] VITALS: BP 158/76; PULSE 59; RESP 17; TEMP 36.8; O2SAT 98
[2023-01-09 20:16] LABS: Glucose, Whole Blood 126 mg/dL (60-115)
[2023-01-09] MEDS: Atorvastatin Calcium 40 MG TABLET PO (20:49)
[2023-01-09] MEDS: Enoxaparin Sodium 40 MG/0.4 ML SYRINGE SUBCUT (20:49)
[2023-01-10 03:47] VITALS: BP 130/65; PULSE 66; RESP 16; TEMP 36.5; O2SAT 98
[2023-01-10] MEDS: Ampicillin Sodium/Sulbactam Na 3 GM in 0.9 % Sodium Chloride 100 ML IV ×2 (06:09→11:28)
[2023-01-10 07:12] VITALS: BP 146/63; PULSE 52; RESP 16; TEMP 36.1; O2SAT 97
[2023-01-10 07:22] LABS: Glucose, Whole Blood 99 mg/dL (60-115)
[2023-01-10 07:28] LABS: Hematocrit 25.6 % (42.0-52.0); Hemoglobin 8.4 g/dl (14.0-18.0); Mean Corpuscular HGB Conc 32.8 g/dl (31.0-36.0); Mean Corpuscular Hemoglobin 30.3 pg (27.0-33.0); Mean Corpuscular Volume 92.4 fL (80.0-98.0); Mean Platelet Volume 10.6 fL (9.4-12.4); Platelet Count 247 X10*3/uL (160-400); Red Blood Count 2.77 X10*6/uL (4.60-5.80); White Blood Count 8.5 X10*3/uL (4.8-10.8)
[2023-01-10 08:40] LABS: Anion Gap 14 (12-20); Blood Urea Nitrogen 12 mg/dL (9-16); Calcium 9.3 mg/dL (8.4-10.2); Carbon Dioxide 27 mmol/L (22-29); Chloride 104 mmol/L (96-108); Creatinine Clr Calc Pharmacy 69.3; Estimated Glomerular Filt Rate > 60; Glucose Random 106 mg/dL (60-115); Potassium 3.9 mmol/L (3.3-5.1); Sodium 141 mmol/L (135-145)
[2023-01-10] MEDS: Sennosides 8.6 MG TABLET PO (08:51)
[2023-01-10] MEDS: Escitalopram Oxalate 5 MG TABLET PO (08:51)
[2023-01-10] MEDS: amLODIPine Besylate 5 MG TABLET PO (08:51)
[2023-01-10] MEDS: carBAMazepine 200 MG TABLET PO (08:51)
[2023-01-10] MEDS: lisinopriL 10 MG TABLET PO (08:51)
[2023-01-10] MEDS: Folic Acid 1 MG TABLET PO (08:51)
[2023-01-10] MEDS: levETIRAcetam Oral Soln 500 MG/5 ML 1000 MG PO (08:52)
[2023-01-10] MEDS: 0.9 % Sodium Chloride Flush 3 ML SYRINGE IVFLUSH (08:58)
[2023-01-10 11:10] LABS: Glucose, Whole Blood 144 mg/dL (60-115)
[2023-01-10 11:25] LABS: COVID-19 Test Negative (Negative); IDNOW Serial# 55D5AD1C
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
--- NOTE | 2023-01-10 13:42 | MHC.SLORD ---
Speech Language Pathology Order Status: BUILDING RENTAL SUPERINTENDENT attempted to see pt for dysphagia tx this morning. Pt sleeping, awoke to sternal rub, but refusing to participate. BUILDING RENTAL SUPERINTENDENT 01/09 recc continue w/ pt's baseline diet NDD2/thin, crushed pills.
[2023-01-10 15:12] VITALS: BP 138/67; PULSE 75; RESP 18; TEMP 36.6; O2SAT 99
--- NOTE | 2023-01-10 16:12 | MHC.CM.PN ---
IMM 01/10/23 Patient discharged to [facility]. All dc info and neg covid test result has been sent to the facility. His siter Dania has been notified of transfer booked for 4:30pm pharmacy picking tech.
--- NOTE | 2023-01-14 16:41 | P.CDIM_ITS ---
PROVIDER RESPONSE TEXT: To clarify, the appropriate diagnosis supported by the clinical indicators: Pressure (decubitus) ulcer/injury Stage 2 right heel QUERY TEXT: PHYSICIAN'S DOCUMENTATION REQUEST Date of Query: 01/09/2023 07:54 AM EDT Patient Name: González Hawk Admit Date: 01/06/2023 Dear Naomi Lobato, A review of the medical record indicates additional documentation may be needed. Please review below and update the documentation accordingly. Clinical Indicators: Wound assessment/Pressure injury notes 01/08 - Pressure injury/wound right heel Stage 2 Silver dressing, Foam dressing, cd/i Based on the above, could you please provide further information regarding the ulcer/wound: Pressure (decubitus) ulcer/injury Stage 2 right heel Other Unable to determine Other (explain)Clinically unable to determine (explain)Thank you, Elma Uriostegui, CCS, CDIS Use of terms such as suspected, likely, concern for, or probable (associated with a specific diagnosi s that is being evaluated, monitored, or treated as if it exists) are acceptable and can be coded in the inpatient se tting, when documented at the time of discharge. Please use your independent medical judgment in providing your response. THIS QUERY IS PART OF THE PERMANENT MEDICAL RECORD
--- NOTE | 2023-01-14 16:41 | P.CDIM_ITS ---
PROVIDER RESPONSE TEXT: To clarify, the appropriate diagnosis supported by the clinical indicators: Well controlled: without status epilepticus QUERY TEXT: PHYSICIAN'S DOCUMENTATION REQUEST Date of Query: 01/09/2023 07:44 AM EDT Patient Name: González Hawk Admit Date: 01/06/2023 Dear Naomi Lobato, A review of the medical record indicates additional documentation may be needed. Please review below and update the documentation accordingly. Clinical Indicators: H&P: Seizure disorder - convert Keppra po to IV until mentation improves. Levetiracetam IV >PO Carbamazepine. If possible, please further clarify the control status and acuity of seizure disorder: Well controlled please further specify acuity as With or Without status epilepticus Intractable please further specify acuity as With or Without status epilepticus Poorly controlled please further specify acuity as With or Without status epilepticus Refractory please further specify acuity as With or Without status epilepticus Other (explain)Clinically unable to determine (explain)Thank you, Elma Uriostegui, CCS, CDIS Use of terms such as suspected, likely, concern for, or probable (associated with a specific diagnosi s that is being evaluated, monitored, or treated as if it exists) are acceptable and can be coded in the inpatient se tting, when documented at the time of discharge. Please use your independent medical judgment in providing your response. THIS QUERY IS PART OF THE PERMANENT MEDICAL RECORD
== END 2023-01-10 16:28 | disposition skilled nursing facility (03) | DRG 871 ==
LOC: HO.ED 21:29 → HO.EDOVER 21:43 → HO.IMC 22:11 → HO.S3 01-08 00:48
PROVIDERS: Nurse Practitioner Acute Care; Admitting Provider Student in an Organized Health Care Education/Training Program; Emergency Provider Emergency Medicine; PCP Family Medicine; Visit Provider Family Medicine
DX: A41.9 Sepsis, unspecified organism (principal); G93.41 Metabolic encephalopathy; J69.0 Pneumonitis due to inhalation of food and vomit; J96.01 Acute respiratory failure with hypoxia; E44.0 Moderate protein-calorie malnutrition; Z68.1 Body mass index [BMI] 19.9 or less, adult; I69.351 Hemiplegia and hemiparesis following cerebral infarction affecting right dominant side; E78.2 Mixed hyperlipidemia; E87.5 Hyperkalemia; D63.8 Anemia in other chronic diseases classified elsewhere; G40.909 Epilepsy, unspecified, not intractable, without status epilepticus; F03.90 Unspecified dementia, unspecified severity, without behavioral disturbance, psychotic disturbance, mood disturbance, and anxiety; M62.421 Contracture of muscle, right upper arm; L89.612 Pressure ulcer of right heel, stage 2; Z20.822 Contact with and (suspected) exposure to COVID-19; Z79.4 Long term (current) use of insulin; Z79.82 Long term (current) use of aspirin; Z79.84 Long term (current) use of oral hypoglycemic drugs; Z79.899 Other long term (current) drug therapy
CPT/HCPCS: 36415; 70450; 71045; 80048; 82272; 82550; 82607; 82728; 82746; 82947; 83540; 83605; 83615; 84145; 84484; 85014; 85018; 85025; 85027; 85045; 85610; 85730; 86850; 86900; 86901; 87040; 87635; 92526; 92610; 93005; 97162; 99285; J0295; J1650; J1953; J2543

== ENCOUNTER 2023-01-20 06:27 | Outpatient (REF) | payer MEDICARE, MEDICAID, SELFPAY ==
[2023-01-20 05:51] LABS: MANUAL DIFF FLAG NO
[2023-01-20 06:05] LABS: Basophils Absolute Auto 0.1 X10*3/uL (0.0-0.2); Basophils Percent Auto 0.7 % (0-2); Eosinophils Absolute Auto 0.2 X10*3/uL (0.0-0.4); Eosinophils Percent Auto 2.8 % (0-4); Hematocrit 26.1 % (42.0-52.0); Hemoglobin 8.4 g/dl (14.0-18.0); Imm Gran Abs Auto 0.06 X10*3/uL (0.00-0.03); Imm Gran Pct Auto 0.9 % (0.0-0.4); Lymphocytes Percent Auto 28.6 % (20-40); Mean Corpuscular HGB Conc 32.2 g/dl (31.0-36.0); Mean Corpuscular Hemoglobin 30.1 pg (27.0-33.0); Mean Corpuscular Volume 93.5 fL (80.0-98.0); Mean Platelet Volume 9.9 fL (9.4-12.4); Monocytes Absolute Auto 0.6 X10*3/uL (0.1-1.2); Neutrophils Absolute Auto 4.2 x10*3/uL (2.0-8.3); Platelet Count 411 X10*3/uL (160-400); Red Blood Count 2.79 X10*6/uL (4.60-5.80); Red Cell Distribution Width 16.3 % (11.0-16.0)
[2023-01-20 06:29] LABS: Anion Gap 14 (12-20); Blood Urea Nitrogen 17 mg/dL (9-16); Calcium 9.8 mg/dL (8.4-10.2); Carbon Dioxide 25 mmol/L (22-29); Chloride 102 mmol/L (96-108); Estimated Glomerular Filt Rate > 60; Glucose Random 103 mg/dL (60-115); Potassium 5.1 mmol/L (3.3-5.1); Sodium 136 mmol/L (135-145)
== END 2023-01-20 06:28 | disposition home or self-care (01) ==
LOC: HO.MMNH1L 06:27
PROVIDERS: Visit Provider Family Medicine
DX: E11.9 Type 2 diabetes mellitus without complications (principal); E46 Unspecified protein-calorie malnutrition; I10 Essential (primary) hypertension
CPT/HCPCS: 36415; 80048; 85025

== ENCOUNTER 2023-01-27 05:59 | Outpatient (REF) | payer MEDICARE, MEDICAID, SELFPAY ==
[2023-01-27 05:52] LABS: MANUAL DIFF FLAG NO
[2023-01-27 06:40] LABS: Basophils Absolute Auto 0.1 X10*3/uL (0.0-0.2); Basophils Percent Auto 0.8 % (0-2); Eosinophils Absolute Auto 0.3 X10*3/uL (0.0-0.4); Eosinophils Percent Auto 3.6 % (0-4); Hematocrit 27.8 % (42.0-52.0); Hemoglobin 8.9 g/dl (14.0-18.0); Imm Gran Abs Auto 0.02 X10*3/uL (0.00-0.03); Imm Gran Pct Auto 0.3 % (0.0-0.4); Lymphocytes Absolute Auto 2.4 X10*3/uL (1.2-4.9); Lymphocytes Percent Auto 31.7 % (20-40); Mean Corpuscular Hemoglobin 30.3 pg (27.0-33.0); Mean Corpuscular Volume 94.6 fL (80.0-98.0); Mean Platelet Volume 10.5 fL (9.4-12.4); Monocytes Absolute Auto 0.8 X10*3/uL (0.1-1.2); Monocytes Percent Auto 10.3 % (2-11); Neutrophils Absolute Auto 4.1 x10*3/uL (2.0-8.3); Neutrophils Percent Auto 53.3 % (45-73); Platelet Count 339 X10*3/uL (160-400); Red Blood Count 2.94 X10*6/uL (4.60-5.80); Red Cell Distribution Width 15.9 % (11.0-16.0); White Blood Count 7.6 X10*3/uL (4.8-10.8)
[2023-01-27 07:01] LABS: Anion Gap 15 (12-20); Blood Urea Nitrogen 21 mg/dL (9-16); Calcium 10.1 mg/dL (8.4-10.2); Carbon Dioxide 24 mmol/L (22-29); Chloride 101 mmol/L (96-108); Estimated Glomerular Filt Rate > 60; Glucose Random 118 mg/dL (60-115); Potassium 5.2 mmol/L (3.3-5.1); Sodium 135 mmol/L (135-145)
== END 2023-01-27 06:00 | disposition home or self-care (01) ==
LOC: HO.MMNH1L 05:59
PROVIDERS: Visit Provider Family Medicine
DX: E11.9 Type 2 diabetes mellitus without complications (principal); E46 Unspecified protein-calorie malnutrition; I10 Essential (primary) hypertension
CPT/HCPCS: 36415; 80048; 85025

== ENCOUNTER 2023-02-03 06:01 | Outpatient (REF) | payer MEDICARE, MEDICAID, SELFPAY ==
[2023-02-03 06:00] LABS: MANUAL DIFF FLAG NO
[2023-02-03 06:25] LABS: Basophils Percent Auto 0.6 % (0-2); Eosinophils Absolute Auto 0.2 X10*3/uL (0.0-0.4); Eosinophils Percent Auto 2.5 % (0-4); Hematocrit 29.2 % (42.0-52.0); Hemoglobin 9.6 g/dl (14.0-18.0); Imm Gran Abs Auto 0.06 X10*3/uL (0.00-0.03); Imm Gran Pct Auto 0.9 % (0.0-0.4); Lymphocytes Absolute Auto 2.4 X10*3/uL (1.2-4.9); Lymphocytes Percent Auto 35.2 % (20-40); Mean Corpuscular HGB Conc 32.9 g/dl (31.0-36.0); Mean Corpuscular Hemoglobin 31.2 pg (27.0-33.0); Mean Corpuscular Volume 94.8 fL (80.0-98.0); Mean Platelet Volume 10.2 fL (9.4-12.4); Monocytes Absolute Auto 0.6 X10*3/uL (0.1-1.2); Monocytes Percent Auto 8.9 % (2-11); Neutrophils Absolute Auto 3.5 x10*3/uL (2.0-8.3); Neutrophils Percent Auto 51.9 % (45-73); Platelet Count 273 X10*3/uL (160-400); Red Blood Count 3.08 X10*6/uL (4.60-5.80); Red Cell Distribution Width 15.1 % (11.0-16.0); White Blood Count 6.7 X10*3/uL (4.8-10.8)
[2023-02-03 06:44] LABS: Anion Gap 17 (12-20); Blood Urea Nitrogen 19 mg/dL (9-16); Carbon Dioxide 22 mmol/L (22-29); Chloride 98 mmol/L (96-108); Estimated Glomerular Filt Rate > 60; Glucose Random 89 mg/dL (60-115); Potassium 4.8 mmol/L (3.3-5.1); Sodium 132 mmol/L (135-145)
== END 2023-02-03 06:02 | disposition home or self-care (01) ==
LOC: HO.MMNH1L 06:01
PROVIDERS: Visit Provider Family Medicine
DX: E11.9 Type 2 diabetes mellitus without complications (principal); E46 Unspecified protein-calorie malnutrition; I10 Essential (primary) hypertension
CPT/HCPCS: 36415; 80048; 85025

== ENCOUNTER 2023-02-05 06:39 | Outpatient (REF) | payer MEDICARE, MEDICAID, SELFPAY ==
[2023-02-12 16:14] LABS: Kappa, Serum 345 mg/dL (176-443); Lambda, Serum 150 mg/dL (91-240)
== END 2023-02-05 06:40 | disposition home or self-care (01) ==
LOC: HO.MMNH1L 06:39
PROVIDERS: Visit Provider Family Medicine
DX: G40.802 Other epilepsy, not intractable, without status epilepticus (principal); I63.9 Cerebral infarction, unspecified
CPT/HCPCS: 36415; 83883

== ENCOUNTER 2023-02-10 06:19 | Outpatient (REF) | payer MEDICARE, MEDICAID, SELFPAY ==
[2023-02-10 06:13] LABS: MANUAL DIFF FLAG NO
[2023-02-10 06:59] LABS: Basophils Absolute Auto 0.1 X10*3/uL (0.0-0.2); Basophils Percent Auto 0.7 % (0-2); Eosinophils Absolute Auto 0.2 X10*3/uL (0.0-0.4); Eosinophils Percent Auto 2.5 % (0-4); Hematocrit 31.6 % (42.0-52.0); Hemoglobin 10.2 g/dl (14.0-18.0); Imm Gran Abs Auto 0.04 X10*3/uL (0.00-0.03); Imm Gran Pct Auto 0.5 % (0.0-0.4); Lymphocytes Absolute Auto 2.1 X10*3/uL (1.2-4.9); Mean Corpuscular HGB Conc 32.3 g/dl (31.0-36.0); Mean Corpuscular Hemoglobin 30.6 pg (27.0-33.0); Mean Corpuscular Volume 94.9 fL (80.0-98.0); Mean Platelet Volume 10.3 fL (9.4-12.4); Monocytes Absolute Auto 0.6 X10*3/uL (0.1-1.2); Monocytes Percent Auto 7.9 % (2-11); Neutrophils Absolute Auto 4.4 x10*3/uL (2.0-8.3); Neutrophils Percent Auto 60.4 % (45-73); Platelet Count 281 X10*3/uL (160-400); Red Blood Count 3.33 X10*6/uL (4.60-5.80); Red Cell Distribution Width 14.6 % (11.0-16.0); White Blood Count 7.3 X10*3/uL (4.8-10.8)
[2023-02-10 07:08] LABS: Anion Gap 16 (12-20); Blood Urea Nitrogen 17 mg/dL (9-16); Calcium 9.8 mg/dL (8.4-10.2); Carbon Dioxide 22 mmol/L (22-29); Chloride 98 mmol/L (96-108); Estimated Glomerular Filt Rate > 60; Glucose Random 85 mg/dL (60-115); Sodium 131 mmol/L (135-145)
== END 2023-02-10 06:20 | disposition home or self-care (01) ==
LOC: HO.MMNH1L 06:19
PROVIDERS: Visit Provider Family Medicine
DX: E11.9 Type 2 diabetes mellitus without complications (principal); E46 Unspecified protein-calorie malnutrition; I10 Essential (primary) hypertension
CPT/HCPCS: 36415; 80048; 85025

== ENCOUNTER 2023-02-17 07:10 | Outpatient (REF) | payer MEDICARE, MEDICAID, SELFPAY | END 2023-02-17 07:11 | disposition home or self-care (01) | LOC: HO.MMNH1L 07:10 | PROVIDERS: Visit Provider Family Medicine | DX: E11.9 Type 2 diabetes mellitus without complications (principal); E46 Unspecified protein-calorie malnutrition; I10 Essential (primary) hypertension | CPT/HCPCS: 36415; 80048; 85025 ==